=== PATIENT | female | born 1990 | race Caucasian/White ===

== ENCOUNTER 2022-09-22 16:07 | Outpatient (CLI) | payer OTHER, SELFPAY ==
--- NOTE | ~2022-09-22 | US_ITS ---
EXAMINATION: US OB /maternal detail DATE: 09/22/2022 18:23 INDICATION: Encounter for screening. TECHNIQUE: Real-time ultrasound of the pelvis was performed. COMPARISON: None. FINDINGS: There is a single living fetus in breech presentation. The placenta is anterior, greater than 5 cm f rom the cervix. The cervical length is normal and measures 7.2 cm, which may be an overestimation. Fe nubia heart rate is 135 beats per minute (bpm). The amniotic fluid volume is subjectively normal. The following biometric data were obtained: Biparietal diameter (BPD): 4.4 cm; head circumference (HC): 17.6 cm; abdominal circumference (AC): 15 .6 cm; femur length (FL): 3.3 cm. These measurements are concordant. Estimated weight is 354 g +/- 53 g, which correlates with the 63rd percentile when 02/08/23 is us ed as estimated date of delivery. As single measurements, these parameters are each equal to the following estimated gestational ages: BPD: 19 weeks 2 days. HC: 20 weeks 1 days. AC: 20 weeks 5 days. FL: 20 weeks 2 days. estimated gestational age based solely on measurements from this exam is 20 weeks 1 days +/- 1 weeks 3 days. The cerebral ventricles, cerebellum, cisterna magna, and visualized portions of the spine are normal. The nuchal fold is not well evaluated due to the patient position. The heart is normal. The diaphrag m, stomach, kidneys, and bladder are normal. There are two umbilical arteries to yield a 3-vessel cor d. The cord insertion is normal. IMPRESSION: 1. Single living fetus in breech presentation. 2. Estimated weight is 354 g +/- 53 g, which correlates with the 63rd percentile when 02/08/23 i s used as estimated date of delivery. 3. Nuchal fold not well evaluated due to the patient position. Otherwise normal anatomic survey . Reviewed, dictated and finalized at location A. IMPRESSION: 1. Single living fetus in breech presentation. 2. Estimated weight is 354 g +/- 53 g, which correlates with the 63rd pe rcentile when 02/08/23 is used as estimated date of delivery. 3. Nuchal fold not well evaluated due to the patient position. Otherwise normal anatomic survey.
== END 2022-09-22 16:08 | disposition home or self-care (01) ==
PROVIDERS: Visit Provider Nurse Practitioner Obstetrics & Gynecology
DX: Z36.9 Encounter for antenatal screening, unspecified (principal)
CPT/HCPCS: 76805